=== PATIENT | male | born 1940 | race Caucasian/White ===

== ENCOUNTER 2020-05-10 07:19 | Outpatient (REF) | payer MEDICARE, SELFPAY ==
[2020-05-10 11:38] LABS: Alanine Aminotransferase 16 U/L (0-40); Albumin Level 4.1 g/dL (3.5-5.0); Alkaline Phosphatase 73 U/L (39-117); Anion Gap 15 (12-20); Aspartate Amino Transferase 21 U/L (5-37); Bilirubin Total 0.3 mg/dL (0.0-1.0); Blood Urea Nitrogen 25 mg/dL (9-16); Calcium 9.1 mg/dL (8.4-10.2); Carbon Dioxide 27 mmol/L (22-29); Chloride 104 mmol/L (96-108); Cholesterol 205 mg/dL; Estimated Glomerular Filt Rate > 60; Glucose Fasting 106 mg/dL (60-99); HDL Cholesterol 61 mg/dL; LDL Cholesterol Calculated 127 mg/dl; Potassium 4.8 mmol/l (3.3-5.1); Sodium 141 mmol/L (135-145); Total Protein 7.4 g/dL (6.5-8.0); Triglycerides 88 mg/dL
== END 2020-05-10 07:20 | disposition home or self-care (01) ==
LOC: HO.WFDLDS 07:19
PROVIDERS: PCP Family Medicine; Visit Provider Family Medicine
DX: R73.01 Impaired fasting glucose (principal); E78.00 Pure hypercholesterolemia, unspecified
CPT/HCPCS: 80053; 80061

== ENCOUNTER 2020-05-16 10:49 | Outpatient (REF) | payer MEDICARE, SELFPAY ==
[2020-05-16 11:44] LABS: Creatinine Urine 84.87 mg/dL; Microalbumin Urine < 5.0 mg/L
== END 2020-05-16 10:50 | disposition home or self-care (01) ==
LOC: HO.LNP 10:49
PROVIDERS: Visit Provider Family Medicine
DX: E11.9 Type 2 diabetes mellitus without complications (principal)
CPT/HCPCS: 82043

== ENCOUNTER → 2020-11-30 14:44 | Outpatient (REF) | payer MEDICARE, SELFPAY ==
--- NOTE | 2020-11-30 14:47 | CA_ITS ---
Transthoracic Echocardiogram Patient (Last, First, Middle): Blaine Mane E Gender: Male Date of : 1940 Age: 80 Procedure Date: 11/30/2020 Procedure Type: Transthoracic Echocardiogram Location: OP Height: 187.96 cm Weight: 121.56 kg BSA: 2.46 m2 Heart Rate: bpm BP: 120 / 65 mmHg Membership Director: JAYLEEN Gomez MD: Brian Young MD Classification Counselor: Praveen Burch MD Symptoms: I35.0 - Nonrheumatic aortic (valve) stenosis Study Quality: Fair/Contrast ECG Rhythm: Sinus Conclusions: - 1. Normal LV systolic function with impaired relaxation filling pattern 2. Moderate to severe aortic stenosis with mean gradient of 25 mm Hg suggestive of paradoxical low-flow aortic stenosis 3. Mildly to moderately elevated right ventricular systolic pressure 4. No pericardial effusion Findings Procedure Information Contrast agent, definity, is being given per protocol without apparent complications. Left Ventricle Normal left ventricular size, thickness, and systolic function. The visually estimated ejection fraction is between 60-65%. Spectral Doppler is indicative of an impaired relaxation filling pattern. E/E prime ratio is between 8 and 15 consistent with indeterminate filling pressures. Right Ventricle Normal right ventricular cavity size and systolic function. Atria The left atrium is normal in size. Interatrial shunt cannot be excluded. The right atrium was not well visualized. Aortic Valve There is moderate calcification of the aortic valve. There is moderate to severe aortic valve stenosis. The peak aortic gradient is 47 mmHg.The aortic valve area is 1.02 cm2. There is no aortic valve regurgitation. Mitral Valve There is mild anterior and posterior mitral leaflet thickening. There is mild mitral annular calcification. There is trace mitral valve regurgitation. There is no mitral valve stenosis. Pulmonic Valve The pulmonic valve was not well visualized. Tricuspid Valve Normal tricuspid valve structure. There is mild tricuspid valve regurgitation. Normal right atrial pressure. Mild to moderate pulmonary hypertension is present. Great Vessels All visible segments of the aorta are normal in size. The pulmonary artery was not well visualized. Venous The inferior vena cava is normal in size and collapses greater than 50% with inspiration. Pericardium/Pleural There is no evidence of pericardial effusion. Prior Study Comparison Changes noted compared to prior study dated: 06/06/2015. Aortic stenosis has progressed Measurements 2D Linear Measurements IVSd: 1.18 0.6-0.9/0.6-1.0 cm LVIDd: 4.08 3.9-5.3/4.2-5.9 cm LVIDd Index: 1.66 2.4-3.2/2.2-3.1 cm/m2 LVIDs: 2.33 2.0-3.6 cm LVPWd: 1.10 0.7-1.1 cm Ao Root: 3.70 2.1-3.5 cm LA Diam: 2.80 2.7-3.8/3.0-4.0 cm LAIDs Index: 1.14 1.5-2.3 cm/m2 LV Mass: 196.92 67-162/88-224 g LV Mass Index: 80.05 43-95/49-115 g/m2 LVOT Diam: 2.30 3.0+(-)1.3 cm 2D Systolic Function EF 4C: 67.50 >55% EF 2C: 64.40 >55% EF BiP: 66.10 >55% Mitral Valve MV Pk E: 0.72 MV PK A: 1.02 MV Decel Time: 222.00 E/A: 0.70 E'Lateral: 7.83 E'Medial: 5.87 E/E' Med: 12.20 E/E' Lat: 9.10 PHT: 65.00 MVA PHT: 3.38 Decel [place]: 3.22 Aortic Valve AoV Pk Robinson: 3.41 AoV Mn Robinson: 2.35 AoV VTI: 0.67 AoV Pk Grad: 47.00 Aov Mn Grad: 25.00 CHELSEA Cont.VTI: 1.02 LVOT LVOT Pk Robinson: 0.76 LVOT Mn Robinson: 0.52 LVOT VTI: 0.17 LVOT Pk Grad: 2.00 LVOT Mn Grad: 1.00 LVOT Diam: 2.30 LVOT Area: 4.15 Diastolic Function MV Pk E: 0.72 MV Pk A: 1.02 E/A: 0.70 E'Medial: 5.87 E/E' Med: 12.20 E' Laterial: 7.83 E/E' Lat: 9.10 Tricuspid Valve TR Pk Robinson: 3.23 TR Pk Grad: 42.00 RA Press: 3.00 RVSP: 45.00 Great Vessels Aorta Ao Root-2D: 3.70 2.0-3.7 cm Ao Asc: 3.80 2.1-3.4 cm Ao Arch: 3.10 Updated in Other Vendor System with Status of Final Praveen Burch MD electronically signed on 12/01/2020 2:14:57 PM with status of Final
== END ==
LOC: HO.CARD 14:44
PROVIDERS: Visit Provider Family Medicine
DX: I35.0 Nonrheumatic aortic (valve) stenosis (principal)
CPT/HCPCS: 93306; Q9957

== ENCOUNTER → 2021-02-20 12:54 | Outpatient (BNVA) | payer MEDICARE, SELFPAY | PROVIDERS: PCP Family Medicine; Referring Provider Family Medicine; Visit Provider Internal Medicine | DX: I35.0 Nonrheumatic aortic (valve) stenosis (principal) | CPT/HCPCS: 93005; 99202 ==

== ENCOUNTER 2021-05-07 09:04 | Outpatient (REF) | payer MEDICARE, SELFPAY ==
[2021-05-07 12:05] LABS: Estimated Average Glucose 123 mg/dL; Hemoglobin A1c % 5.9 %
[2021-05-07 12:22] LABS: Alanine Aminotransferase 15 U/L (0-40); Albumin Level 4.1 g/dL (3.5-5.0); Alkaline Phosphatase 76 U/L (39-117); Anion Gap 12 (12-20); Aspartate Amino Transferase 20 U/L (5-37); Bilirubin Total 0.4 mg/dL (0.0-1.0); Blood Urea Nitrogen 23 mg/dL (9-16); Calcium 9.5 mg/dL (8.4-10.2); Carbon Dioxide 27 mmol/L (22-29); Chloride 106 mmol/L (96-108); Cholesterol 181 mg/dL; Estimated Glomerular Filt Rate > 60; Glucose Random 87 mg/dL (60-115); HDL Cholesterol 48 mg/dL; LDL Cholesterol Calculated 109 mg/dl; Potassium 4.3 mmol/L (3.3-5.1); Sodium 141 mmol/L (135-145); Total Protein 7.2 g/dL (6.5-8.0); Triglycerides 120 mg/dL
[2021-05-07 12:28] LABS: Thyroid Stimulating Hormone 1.91 uIU/mL (0.32-4.0)
== END 2021-05-07 09:05 | disposition home or self-care (01) ==
LOC: HO.WFDLDS 09:04
PROVIDERS: Visit Provider Family Medicine
DX: Z00.00 Encounter for general adult medical examination without abnormal findings (principal); E03.9 Hypothyroidism, unspecified; I35.0 Nonrheumatic aortic (valve) stenosis; R73.01 Impaired fasting glucose
CPT/HCPCS: 36415; 80053; 80061; 83036; 84443

== ENCOUNTER → 2021-08-31 07:51 | Outpatient (REF) | payer MEDICARE, SELFPAY ==
--- NOTE | 2021-08-31 08:03 | CA_ITS ---
Transthoracic Echocardiogram Patient (Last, First, Middle): Blaine Mane E Gender: Male Date of : 1940 Age: 81 Procedure Date: 08/31/2021 Procedure Type: Transthoracic Echocardiogram Location: OP Height: 190.5 cm Weight: 116.58 kg BSA: 2.44 m2 Heart Rate: bpm BP: 122 / 70 mmHg Gathering Machine Setter: MARIE Referring MD: Brendon Foss MD Symptoms: I35.0 - Nonrheumatic aortic (valve) stenosis Study Quality: Fair ECG Rhythm: Sinus Conclusions: - The left ventricular systolic function is normal. The calculated ejection fraction is 65% by biplane method. - There is moderate to severe aortic valve stenosis. Low flow-low gradient type. Findings Left Ventricle Normal left ventricular cavity size. There is mildly increased left ventricular wall thickness. The left ventricular systolic function is normal. The calculated ejection fraction is 65% by biplane method. Diastolic function is normal for age. Wall motion assessment suboptimal but no gross abnormality. Right Ventricle Normal right ventricular cavity size and systolic function. Atria Both atria are normal in size. Aortic Valve There is moderate calcification of the aortic valve. There is moderate to severe aortic valve stenosis. The peak aortic velocity is 3.42 m/s with a calculated peak gradient of 47 mmHg. The mean gradient is 29 mmHg. The aortic valve area is 1.05 cm2. There is trace (trivial) aortic valve regurgitation. Dimensionless index 0.23. Stroke volume index 30cc. Mitral Valve The mitral valve appears normal. There is mild mitral annular calcification. There is no mitral valve regurgitation. There is no mitral valve stenosis. Pulmonic Valve The pulmonic valve was not well visualized. Tricuspid Valve There is mild tricuspid valve regurgitation. The pulmonary artery systolic pressure is normal. Great Vessels The asc aorta is normal in size. Moderate plaque is seen in the sinuses of Valsalva. Venous The inferior vena cava was not well visualized. The inferior vena cava is normal in size. Pericardium/Pleural There is no evidence of pericardial effusion. Prior Study Comparison No significant change compared to prior study dated: 11/30/2020. Measurements 2D Linear Measurements IVSd: 1.18 0.6-0.9/0.6-1.0 cm LVIDd: 3.99 3.9-5.3/4.2-5.9 cm LVIDd Index: 1.64 2.4-3.2/2.2-3.1 cm/m2 LVIDs: 2.33 2.0-3.6 cm LVPWd: 1.10 0.7-1.1 cm LA Diam: 3.60 2.7-3.8/3.0-4.0 cm LAIDs Index: 1.48 1.5-2.3 cm/m2 LV Mass: 190.29 67-162/88-224 g LV Mass Index: 77.99 43-95/49-115 g/m2 LVOT Diam: 2.30 3.0+(-)1.3 cm 2D Systolic Function EF 4C: 59.60 >55% EF 2C: 66.20 >55% EF BiP: 65.00 >55% Mitral Valve MV Pk E: 0.72 MV PK A: 0.93 MV Decel Time: 296.00 E/A: 0.80 E'Lateral: 6.09 E'Medial: 5.55 E/E' Med: 13.00 E/E' Lat: 11.90 PHT: 87.00 MVA PHT: 2.53 Decel [place]: 2.44 Aortic Valve AoV Pk Robinson: 3.42 AoV Mn Robinson: 2.54 AoV VTI: 0.70 AoV Pk Grad: 47.00 Aov Mn Grad: 29.00 CHELSEA Cont.VTI: 1.05 LVOT LVOT Pk Robinson: 0.78 LVOT Mn Robinson: 0.51 LVOT VTI: 0.18 LVOT Pk Grad: 2.00 LVOT Mn Grad: 1.00 LVOT Diam: 2.30 LVOT Area: 4.15 Diastolic Function MV Pk E: 0.72 MV Pk A: 0.93 E/A: 0.80 E'Medial: 5.55 E/E' Med: 13.00 E' Laterial: 6.09 E/E' Lat: 11.90 Right Ventricle TAPSE (mm): 2.09 TVS' Robinson: 12.30 Tricuspid Valve TR Pk Robinson: 2.50 TR Pk Grad: 25.00 RA Press: 3.00 RVSP: 28.00 Great Vessels Aorta Sinus of Valsalva: 3.77 2.0-3.[address] [place]: 2.10 1.7-3.4 cm Ao Asc: 3.80 2.1-3.4 cm Updated in Other Vendor System with Status of Final Brendon Foss MD electronically signed on 09/01/2021 2:18:11 PM with status of Final
== END ==
LOC: HO.CARD 07:51
PROVIDERS: PCP Family Medicine; Visit Provider Internal Medicine
DX: I35.0 Nonrheumatic aortic (valve) stenosis (principal)
CPT/HCPCS: 93306

== ENCOUNTER → 2021-09-11 08:35 | Outpatient (BNVA) | payer MEDICARE, SELFPAY | PROVIDERS: PCP Family Medicine; Referring Provider Family Medicine; Visit Provider Internal Medicine | DX: I35.0 Nonrheumatic aortic (valve) stenosis (principal) | CPT/HCPCS: 99212 ==

== ENCOUNTER 2021-11-08 10:27 | Outpatient (REF) | payer MEDICARE, SELFPAY ==
[2021-11-08 13:32] LABS: MANUAL DIFF FLAG NO
[2021-11-08 13:37] LABS: Appearance Urine CLEAR; Color Urine YELLOW; Glucose Urine UA NEG (NEG); Leukocyte Esterase Urine NEG (NEG); Nitrite Urine NEG (NEG); PH 5.5 (5.0-8.0); Specific Gravity - Urine >= 1.030 (1.005-1.025); Urine Blood NEG (NEG); Urine Ketones NEG (NEG); Urine Protein NEG (NEG-TRACE)
[2021-11-08 13:43] LABS: Basophils Absolute Auto 0.1 X10*3/uL (0.0-0.2); Basophils Percent Auto 1.3 % (0-2); Eosinophils Absolute Auto 0.2 X10*3/uL (0.0-0.4); Eosinophils Percent Auto 2.7 % (0-4); Hematocrit 40.4 % (42.0-52.0); Hemoglobin 12.8 g/dl (14.0-18.0); Imm Gran Abs Auto 0.04 X10*3/uL (0.00-0.03); Imm Gran Pct Auto 0.5 % (0.0-0.4); Lymphocytes Absolute Auto 2.3 X10*3/uL (1.2-4.9); Lymphocytes Percent Auto 26.7 % (20-40); Mean Corpuscular HGB Conc 31.7 g/dl (31.0-36.0); Mean Corpuscular Hemoglobin 30.7 pg (27.0-33.0); Mean Corpuscular Volume 96.9 fL (80.0-98.0); Monocytes Absolute Auto 0.8 X10*3/uL (0.1-1.2); Monocytes Percent Auto 9.2 % (2-11); Neutrophils Absolute Auto 5.2 x10*3/uL (2.0-8.3); Neutrophils Percent Auto 59.6 % (45-73); Platelet Count 239 X10*3/uL (160-400); Red Blood Count 4.17 X10*6/uL (4.60-5.80); Red Cell Distribution Width 12.4 % (11.0-16.0); White Blood Count 8.6 X10*3/uL (4.8-10.8)
[2021-11-08 13:48] LABS: Alanine Aminotransferase 18 U/L (0-40); Alkaline Phosphatase 80 U/L (39-117); Anion Gap 12 (12-20); Aspartate Amino Transferase 22 U/L (5-37); Bilirubin Total 0.4 mg/dL (0.0-1.0); Blood Urea Nitrogen 18 mg/dL (9-16); Calcium 9.1 mg/dL (8.4-10.2); Carbon Dioxide 29 mmol/L (22-29); Chloride 105 mmol/L (96-108); Cholesterol 197 mg/dL; Estimated Glomerular Filt Rate > 60; Glucose Fasting 100 mg/dL (60-99); HDL Cholesterol 54 mg/dL; LDL Cholesterol Calculated 123 mg/dl; Potassium 4.5 mmol/L (3.3-5.1); Sodium 141 mmol/L (135-145); Total Protein 7.1 g/dL (6.5-8.0); Triglycerides 104 mg/dL
[2021-11-08 14:09] LABS: TSH reflex Free T4 1.86 uIU/mL (0.32-4.0)
[2021-11-08 14:15] LABS: Creatinine Urine 133.36 mg/dL; Microalbum/Creatinine Ratio Ur 5.9 ug/mg cr
== END 2021-11-08 10:28 | disposition home or self-care (01) ==
LOC: HO.WFDLDS 10:27
PROVIDERS: Visit Provider Family Medicine
DX: Z00.00 Encounter for general adult medical examination without abnormal findings (principal); I10 Essential (primary) hypertension
CPT/HCPCS: 36415; 80053; 80061; 81003; 82043; 84443; 85025

== ENCOUNTER 2021-12-10 07:36 | Outpatient (REF) | payer MEDICARE, SELFPAY ==
[2021-12-10 11:18] LABS: MANUAL DIFF FLAG NO
[2021-12-10 11:23] LABS: Basophils Absolute Auto 0.1 X10*3/uL (0.0-0.2); Basophils Percent Auto 1.5 % (0-2); Eosinophils Absolute Auto 0.2 X10*3/uL (0.0-0.4); Hematocrit 40.4 % (42.0-52.0); Hemoglobin 12.9 g/dl (14.0-18.0); Imm Gran Abs Auto 0.03 X10*3/uL (0.00-0.03); Imm Gran Pct Auto 0.4 % (0.0-0.4); Immature Retic Fraction 8.6 % (2.3-13.4); Lymphocytes Percent Auto 25.2 % (20-40); Mean Corpuscular HGB Conc 31.9 g/dl (31.0-36.0); Mean Corpuscular Hemoglobin 31.3 pg (27.0-33.0); Mean Corpuscular Volume 98.1 fL (80.0-98.0); Monocytes Absolute Auto 0.6 X10*3/uL (0.1-1.2); Monocytes Percent Auto 6.9 % (2-11); Neutrophils Absolute Auto 5.1 x10*3/uL (2.0-8.3); Platelet Count 236 X10*3/uL (160-400); Red Blood Count 4.12 X10*6/uL (4.60-5.80); Red Cell Distribution Width 12.4 % (11.0-16.0); Retic HGB Equivalent 35.9 pg (30.0-35.0); Reticulocyte Percent 1.4 % (0.5-1.8); Reticulocytes Absolute 0.058 X10*6/uL (0.026-0.095); White Blood Count 8.1 X10*3/uL (4.8-10.8)
[2021-12-10 11:38] LABS: Estimated Average Glucose 120 mg/dL; Hemoglobin A1c % 5.8 %
[2021-12-10 11:53] LABS: Alanine Aminotransferase 17 U/L (0-40); Albumin Level 4.1 g/dL (3.5-5.0); Alkaline Phosphatase 78 U/L (39-117); Anion Gap 11 (12-20); Aspartate Amino Transferase 21 U/L (5-37); Bilirubin Total 0.2 mg/dL (0.0-1.0); Blood Urea Nitrogen 20 mg/dL (9-16); Calcium 9.1 mg/dL (8.4-10.2); Carbon Dioxide 28 mmol/L (22-29); Chloride 106 mmol/L (96-108); Cholesterol 205 mg/dL; Estimated Glomerular Filt Rate > 60; Glucose Fasting 123 mg/dL (60-99); HDL Cholesterol 58 mg/dL; Iron 63 mcg/dL (45-160); LDL Cholesterol Calculated 130 mg/dl; Percent Iron Saturation 20 % (15-50); Potassium 4.3 mmol/L (3.3-5.1); Sodium 141 mmol/L (135-145); Total Iron Binding Capacity 312 mcg/dL (228-428); Total Protein 7.1 g/dL (6.5-8.0); Triglycerides 89 mg/dL; Unsaturated Iron Binding 249 ug/dL
[2021-12-10 12:02] LABS: Ferritin 398 ng/mL (20-250); Prostate Specific Antigen Scr < 0.05 ng/mL (<0.05-4.0)
[2021-12-10 12:15] LABS: Folate 18.4 ng/mL (> or = 4.0); Vitamin B12 714 pg/mL (200-900)
== END 2021-12-10 07:37 | disposition home or self-care (01) ==
LOC: HO.WFDLDS 07:36
PROVIDERS: Visit Provider Family Medicine
DX: Z00.00 Encounter for general adult medical examination without abnormal findings (principal); I10 Essential (primary) hypertension; R73.01 Impaired fasting glucose; R73.03 Prediabetes; D64.9 Anemia, unspecified; E53.8 Deficiency of other specified B group vitamins; E78.5 Hyperlipidemia, unspecified; Z12.5 Encounter for screening for malignant neoplasm of prostate
CPT/HCPCS: 36415; 80053; 80061; 82607; 82728; 82746; 83036; 83540; 84153; 84443; 85025; 85045

== ENCOUNTER → 2022-04-02 10:09 | Outpatient (REF) | payer MEDICARE, SELFPAY ==
--- NOTE | 2022-04-02 10:12 | CA_ITS ---
Transthoracic Echocardiogram Patient (Last, First, Middle): Blaine Mane E Gender: Male Date of : 1940 Age: 81 Procedure Date: 04/02/2022 Procedure Type: Transthoracic Echocardiogram Location: OP Height: 187.96 cm Weight: 114.31 kg BSA: 2.40 m2 Heart Rate: 75 bpm BP: 130 / 80 mmHg Master Baker: CLEMENTINE Referring MD: Brendon Foss MD Symptoms: I35.0 - Nonrheumatic aortic (valve) stenosis Study Quality: Fair ECG Rhythm: Sinus Conclusions: - The left ventricular systolic function is normal. The visually estimated ejection fraction is between 55-60%. - There is severe aortic valve stenosis. Low flow, low gradient type. Findings Left Ventricle Normal left ventricular cavity size. There is mildly increased left ventricular wall thickness. The left ventricular systolic function is normal. The visually estimated ejection fraction is between 55-60%. There is no evidence of regional wall motion abnormalities. Diastolic function is normal for age. Moderate to severe focal basal septal hypertrophy. Right Ventricle Normal right ventricular cavity size and systolic function. Atria Both atria are normal in size. Aortic Valve There is severe calcification of the aortic valve. There is severe aortic valve stenosis. The peak aortic gradient is 37 mmHg.The mean gradient is 23 mmHg. The aortic valve area is 0.89 cm2. There is trace (trivial) aortic valve regurgitation. Stroke volume index 25cc/m2. Mitral Valve The mitral valve appears normal. There is trace mitral valve regurgitation. There is no mitral valve stenosis. Pulmonic Valve The pulmonic valve is likely normal. Tricuspid Valve Normal tricuspid valve structure. There is mild tricuspid valve regurgitation. There is no evidence of pulmonary hypertension. Great Vessels The asc aorta is normal in size. Venous The inferior vena cava was not well visualized. Pericardium/Pleural Prominent epicardial adipose tissue noted. There is a trivial pericardial effusion. Prior Study Comparison Changes noted compared to prior study dated: 08/31/2021. Valve area slightly smaller. Gradients lower than before, possible underestimated. Measurements 2D Linear Measurements IVSd: 1.51 0.6-0.9/0.6-1.0 cm LVIDd: 4.22 3.9-5.3/4.2-5.9 cm LVIDd Index: 1.76 2.4-3.2/2.2-3.1 cm/m2 LVIDs: 1.95 2.0-3.6 cm LVPWd: 1.04 0.7-1.1 cm LA Diam: 3.70 2.7-3.8/3.0-4.0 cm LAIDs Index: 1.54 1.5-2.3 cm/m2 LV Mass: 244.54 67-162/88-224 g LV Mass Index: 101.89 43-95/49-115 g/m2 LVOT Diam: 2.20 3.0+(-)1.3 cm 2D Systolic Function EF 4C: 50.60 >55% EF 2C: 53.50 >55% EF BiP: 48.20 >55% Mitral Valve MV Pk E: 0.74 MV PK A: 1.12 MV Decel Time: 247.00 E/A: 0.70 E'Lateral: 6.42 E'Medial: 5.77 E/E' Med: 12.90 E/E' Lat: 11.60 PHT: 72.00 MVA PHT: 3.06 Decel [place]: 3.00 Aortic Valve AoV Pk Robinson: 3.04 AoV Mn Robinson: 2.21 AoV VTI: 0.68 AoV Pk Grad: 37.00 Aov Mn Grad: 23.00 CHELSEA Cont.VTI: 0.89 LVOT LVOT Pk Robinson: 0.71 LVOT Mn Robinson: 0.51 LVOT VTI: 0.16 LVOT Pk Grad: 2.00 LVOT Mn Grad: 1.00 LVOT Diam: 2.20 LVOT Area: 3.80 Diastolic Function MV Pk E: 0.74 MV Pk A: 1.12 E/A: 0.70 E'Medial: 5.77 E/E' Med: 12.90 E' Laterial: 6.42 E/E' Lat: 11.60 Right Ventricle TAPSE (mm): 22.90 TVS' Robinson: 12.50 Tricuspid Valve TR Pk Robinson: 2.44 TR Pk Grad: 24.00 Great Vessels Aorta Sinus of Valsalva: 3.90 2.0-3.5 cm Ao Asc: 3.70 2.1-3.4 cm Pulmonary Valve PV Pk Robinson: 1.60 Peak PV Grad: 10.00 Updated in Other Vendor System with Status of Final Brendon Foss MD electronically signed on 04/03/2022 12:00:37 PM with status of Final
== END ==
LOC: HO.CARD 10:09
PROVIDERS: Visit Provider Internal Medicine
DX: I35.0 Nonrheumatic aortic (valve) stenosis (principal)
CPT/HCPCS: 93306

== ENCOUNTER → 2022-09-11 08:26 | Outpatient (BNVA) | payer MEDICARE, SELFPAY | PROVIDERS: PCP Family Medicine; Visit Provider Internal Medicine | DX: I35.0 Nonrheumatic aortic (valve) stenosis (principal) | CPT/HCPCS: 99212 ==

== ENCOUNTER → 2022-10-21 08:06 | Outpatient (REF) | payer MEDICARE, SELFPAY ==
--- NOTE | 2022-10-21 08:09 | CA_ITS ---
Acquisition Time: 2022-10-21 08:19:00 Total Exercise Time: 00:03:44 Test Indications: AORTIC STENOSIS Medications: MULTIVIT SILDENAFIL Protocol: DANIS Max HR: 148 BPM 107% of Pred: 138 BPM Max BP: 168/064 mmHG Max Work Load: 5.0 METS Exercise stress test with exercise 3 min 44 sec of Danis protocol ( speed in stage 2 reduced to 2.0 MPH) achieving 97% MPHR, with request to stop due to leg fatigue, he denies having sob, chest discomfort, lightheadness, with isolated PVC, with normotensive and brisk chronotopic response to exercise, without EKG changes meeting criteria for ischemia. Test reviewed with Dr Burch. Referred By: Brendon Foss Overread By: CLEMENCIA HERRMANN
== END ==
LOC: HO.CARD 08:06
PROVIDERS: PCP Family Medicine; Visit Provider Internal Medicine
DX: I35.0 Nonrheumatic aortic (valve) stenosis (principal)
CPT/HCPCS: 93017

== ENCOUNTER 2022-12-18 08:46 | Outpatient (AMB) | payer MEDICARE, SELFPAY ==
[2022-12-18 08:48] VITALS: BP 120/78; PULSE 79; O2SAT 97; BMI 35.7
--- NOTE | 2022-12-18 08:48 | A.OFFPC_ITS ---
Vital Signs 12/18/22 08:48 Height 6 ft 2 in Weight 278 lb BMI 35.7 BP 120/78 Blood Pressure Location Rt brachial Position Sitting Pulse 79 Pulse Source Pulse Oximeter Pulse Oximetry (%) 97 Oxygen Delivery Method Room Air Intake Visit Reasons: Extended exam Intake Note: Patient is here for an extended exam. Allergies No Known Allergies Allergy (Verified 12/18/22 08:52) Medication List - Last Reconciled 12/18/22 by Brain Young MD multivitamin 1 tab PO DAILY sildenafil (Viagra) 25 mg PO DAILY PRN Tobacco use date assessed: 12/18/22 Fall risk assessment: No Falls in past year Last assessed Fall Risk: 12/18/22 Dental Screening Dental Screen Date: 12/18/22 Did you have a dental visit in the last 12 months?: Yes Did you have a dental problem in the last 6 months where you did not have access to dental care?: No Was dental information given to patient?: No HPI Extended exam HPI Details 82 y/o male presents for an extended exam with f/u labs and health maintenance. No recent labs to review. Had seen Pet Groomer for his aortic stenosis. He states he had a stress test done a couple weeks ago. He sees a dentist every 6 months. [facility] Medical History Diabetes Surgical History History of cholecystectomy Family History Mother No problems noted. Father No problems noted. 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 1. Little interest or pleasure in doing things: not at all 2. Feeling down, depressed, or hopeless: not at all 3. Trouble falling or staying asleep, or sleeping too much: not at all 4. Feeling tired or having little energy: not at all 5. Poor appetite or overeating: not at all 6. Feeling bad about yourself - or that you are a failure or have let yourself or your family down: not at all 7. Trouble concentrating on things, such as reading the newspaper or watching television: not at all 8. Moving or speaking so slowly that other people could have noticed. Or the opposite - being so fidgety or restless that you have been moving around a lot more than usual: not at all 9. Thoughts that you would be better off or of hurting yourself in some way: not at all Total score: 0 Source: Developed by Drs. Gabriel Rose, Va Nascimento, Mike Rowland and colleagues, with an educational piter from [employer]. Thrive Questionnaire Date Thrive assessed: 06/11/22 I am a: Patient What is your living situation today?: I have a steady place to live Within the past 12 months, did the food you bought not last and you didn't have the money to get more?: Never true Within the past 12 months, did you worry whether your food would run out before you got money to buy more?: Never true Do you have trouble paying for medicines?: No Do you have trouble getting transportation to medical appointments?: No Do you have trouble paying your heating and electricity bill?: No Do you have trouble taking care of your child, family member or friend?: No Do you have trouble with day-to-day activities such as bathing, preparing meals, shopping, managing finances, etc.?: No Are you currently unemployed and looking for a job?: No Are you interested in more education?: No AUDIT C Alcohol Use Questionnaire (AUDIT-C) 1. How often do you have a drink containing alcohol?: Never 3. How often do you have six or more drinks on one occasion?: Never Total Score: 0 RENEA-7 AMB Questionnaire RENEA-7 Date RENEA - 7 assessed: 06/11/22 Feeling nervous, anxious, or on edge: 0 = Not at all Not being able to stop or control worryin = Not at all Worrying too much about different things: 0 = Not at all Trouble relaxin = Not at all Being so restless that it is hard to sit still: 0 = Not at all Becoming easily annoyed or irritable: 0 = Not at all Feeling afraid as if something awful might happen: 0 = Not at all Total RENEA-7 score (0-4 normal; 5-9 mild; 10-14 moderate; 15-21 severe): 0 Source: Developed by Drs. Gabriel Rose, Va Nascimento, Mike Rowland and colleagues, with an educational piter from [employer]. Physical exam (Primary Care) Vital Signs: Last Vital Signs Pulse 79 12/18/22 08:48 BP 120/78 12/18/22 08:48 Pulse Ox 97 12/18/22 08:48 Oxygen Delivery Method Room Air 12/18/22 08:48 BMI result Body Mass Index 35.7 Tobacco/Smoking Status: Tobacco use Status Tobacco use date assessed 12/18/22 12/18/22 09:00 Patient Tobacco Use Status Never used Tobacco 12/18/22 09:00 e-Cigarette/Vaping Use Never Used 12/18/22 09:00 PHQ-9: PHQ-9 Score PHQ-9: Total score 0 12/18/22 09:38 Thrive Assessment: Date of Thrive Assessment Date Thrive assessed 06/11/22 12/18/22 09:00 Results AMB Hemoglobin A1c AMB Hemoglobin A1c 6.1 % Last Edit by Louisa Smith CMA on 12/18/22 09:11 Results Reviewed Results Reviewed: Laboratory Last Values Hgb A1c (Clinic) 6.1 % (4.0-6.0) H 12/18/22 09:11 Assessment and Plan Assessment & Plan (1) Essential hypertension: Code(s): I10 - Essential (primary) hypertension Plan: Blood pressure is well controlled. Goal is less than 130/80 Continue diet control (2) Non-rheumatic aortic stenosis: Code(s): I35.0 - Nonrheumatic aortic (valve) stenosis Plan: Asymptomatic. Recent echo showed severe stenosis. Was referred to Cardiology. A recent stress test showed no ischemia We will continue to monitor (3) Hyperlipidemia: Code(s): E78.5 - Hyperlipidemia, unspecified Plan: Checking labs (4) Screening for prostate cancer: Code(s): Z12.5 - Encounter for screening for malignant neoplasm of prostate Plan: Check PSA (5) Screening for colon cancer: Code(s): Z12.11 - Encounter for screening for malignant neoplasm of colon Plan: Patient declines any further colon cancer screening (6) Pre-diabetes: Code(s): R73.03 - Prediabetes Plan: A1c 6.1% and steady. Encouraged healthy diet with exercise and weight control (7) Adult general medical exam: Code(s): Z00.00 - Encounter for general adult medical examination without abnormal findings Plan: 82-year-old male presents for an extended exam Encouraged healthy diet with active lifestyle and plenty of exercise Orders: Orders Comprehensive Met. Panel Today Z00.00 - Encounter for general adult medical examination without abnormal findings LDL Cholesterol Direct Today E78.5 - Hyperlipidemia, unspecified Lipid Panel Today Z00.00 - Encounter for general adult medical examination without abnormal findings Prostate Specific Antigen Scr Today Z00.00 - Encounter for general adult medical examination without abnormal findings, Z12.5 - Encounter for screening for malignant neoplasm of prostate TSH reflex Free T4 Today Z00.00 - Encounter for general adult medical examination without abnormal findings Microalbumin, Random (w Creat) Today I10 - Essential (primary) hypertension, Z00.00 - Encounter for general adult medical examination without abnormal findings UA and rflx microscopic Today Z00.00 - Encounter for general adult medical examination without abnormal findings Complete Blood Count Auto Diff Today Z00.00 - Encounter for general adult medical examination without abnormal findings AMB Hemoglobin A1c Today Z13.9 - Encounter for screening, unspecified Coding Level of Care Code Est Pt Level 4 (47201) Diagnoses Essential hypertension I10 Non-rheumatic aortic stenosis I35.0 Hyperlipidemia E78.5 Screening for prostate cancer Z12.5 Screening for colon cancer Z12.11 Pre-diabetes R73.03 Adult general medical exam Z00.00
== END 2022-12-18 09:52 | disposition home or self-care (01) ==
PROVIDERS: Visit Provider Family Medicine
DX: I10 Essential (primary) hypertension (principal); I35.0 Nonrheumatic aortic (valve) stenosis; E78.5 Hyperlipidemia, unspecified; Z12.5 Encounter for screening for malignant neoplasm of prostate; Z12.11 Encounter for screening for malignant neoplasm of colon; R73.03 Prediabetes; Z00.00 Encounter for general adult medical examination without abnormal findings; Z13.9 Encounter for screening, unspecified
CPT/HCPCS: 83036; 99214

== ENCOUNTER 2022-12-18 09:53 | Outpatient (REF) | payer MEDICARE, SELFPAY ==
[2022-12-18 11:25] LABS: MANUAL DIFF FLAG NO
[2022-12-18 11:43] LABS: Basophils Absolute Auto 0.2 X10*3/uL (0.0-0.2); Basophils Percent Auto 1.8 % (0-2); Eosinophils Absolute Auto 0.2 X10*3/uL (0.0-0.4); Eosinophils Percent Auto 2.9 % (0-4); Hematocrit 43.8 % (42.0-52.0); Hemoglobin 13.8 g/dl (14.0-18.0); Imm Gran Abs Auto 0.03 X10*3/uL (0.00-0.03); Imm Gran Pct Auto 0.4 % (0.0-0.4); Lymphocytes Absolute Auto 2.6 X10*3/uL (1.2-4.9); Lymphocytes Percent Auto 31.2 % (20-40); Mean Corpuscular HGB Conc 31.5 g/dl (31.0-36.0); Mean Corpuscular Hemoglobin 30.5 pg (27.0-33.0); Mean Corpuscular Volume 96.9 fL (80.0-98.0); Mean Platelet Volume 9.7 fL (9.4-12.4); Monocytes Absolute Auto 0.7 X10*3/uL (0.1-1.2); Monocytes Percent Auto 8.3 % (2-11); Neutrophils Absolute Auto 4.6 x10*3/uL (2.0-8.3); Neutrophils Percent Auto 55.4 % (45-73); Platelet Count 259 X10*3/uL (160-400); Red Blood Count 4.52 X10*6/uL (4.60-5.80); Red Cell Distribution Width 12.7 % (11.0-16.0); White Blood Count 8.2 X10*3/uL (4.8-10.8)
[2022-12-18 14:31] LABS: Appearance Urine Cloudy; Color Urine Dark Yellow; Glucose Urine UA Negative (Negative); Leukocyte Esterase Urine Negative (Negative); Nitrite Urine Negative (Negative); Specific Gravity - Urine 1.025 (1.005-1.025); UMIC TRIGGER UA YES; Urine Blood Trace (Negative); Urine Ketones Negative (Negative); Urine Protein Negative (Neg-Trace)
[2022-12-18 14:40] LABS: Bacteria Urine None Seen (None Seen); Calcium Oxalate Crystals Urine Present; Hyaline Casts Urine 0-2 /LPF (0-2); WBC Urine 0-5 /HPF (0-5)
[2022-12-18 15:27] LABS: Creatinine Urine 125.77 mg/dL; Microalbum/Creatinine Ratio Ur 8.7 ug/mg cr
[2022-12-18 15:49] LABS: Prostate Specific Antigen Scr < 0.10 ng/mL (<0.05-4.0)
[2022-12-18 22:01] LABS: Alanine Aminotransferase 27 U/L (0-40); Albumin Level 4.1 g/dL (3.5-5.0); Alkaline Phosphatase 77 U/L (39-117); Anion Gap 15 (12-20); Aspartate Amino Transferase 29 U/L (5-37); Bilirubin Total 0.4 mg/dL (0.0-1.0); Blood Urea Nitrogen 21 mg/dL (9-16); Calcium 9.6 mg/dL (8.4-10.2); Carbon Dioxide 25 mmol/L (22-29); Chloride 103 mmol/L (96-108); Cholesterol 228 mg/dL; Estimated Glomerular Filt Rate > 60; Glucose Random 110 mg/dL (60-115); HDL Cholesterol 62 mg/dL; LDL Cholesterol Calculated 144 mg/dl; Potassium 4.2 mmol/L (3.3-5.1); Sodium 139 mmol/L (135-145); Total Protein 7.7 g/dL (6.5-8.0); Triglycerides 110 mg/dL
[2022-12-18 22:15] LABS: TSH reflex Free T4 1.93 uIU/mL (0.32-4.0)
[2022-12-20 09:59] LABS: LDL Cholesterol Direct 160 mg/dL (<100)
== END 2022-12-18 09:54 | disposition home or self-care (01) ==
LOC: HO.WFDLDS 09:53
PROVIDERS: Visit Provider Family Medicine
DX: Z00.00 Encounter for general adult medical examination without abnormal findings (principal); Z12.5 Encounter for screening for malignant neoplasm of prostate; E78.5 Hyperlipidemia, unspecified; I10 Essential (primary) hypertension
CPT/HCPCS: 36415; 80053; 80061; 81001; 82043; 83721; 84153; 84443; 85025

== ENCOUNTER → 2025-05-10 11:41 | Outpatient (BNV) | payer MEDICARE, SELFPAY | PROVIDERS: Emergency Provider Emergency Medicine Emergency Medical Services; Visit Provider Internal Medicine Cardiovascular Disease | DX: R94.31 Abnormal electrocardiogram [ECG] [EKG] (principal); Z04.3 Encounter for examination and observation following other accident | CPT/HCPCS: 93010 ==

== ENCOUNTER → 2025-05-10 11:41 | Outpatient (BNV) | payer MEDICARE, SELFPAY | PROVIDERS: Emergency Provider Emergency Medicine Emergency Medical Services; Visit Provider Radiology Diagnostic Radiology | DX: Z04.3 Encounter for examination and observation following other accident (principal); M50.30 Other cervical disc degeneration, unspecified cervical region; R29.6 Repeated falls; R91.8 Other nonspecific abnormal finding of lung field | CPT/HCPCS: 71045 ==

== ENCOUNTER → 2025-05-10 12:00 | Outpatient (BNV) | payer MEDICARE, SELFPAY | PROVIDERS: Emergency Provider Emergency Medicine Emergency Medical Services; PCP Family Medicine; Visit Provider Social Worker | DX: Z13.39 Encounter for screening examination for other mental health and behavioral disorders (principal) | CPT/HCPCS: 99284 ==

== ENCOUNTER → 2025-05-19 16:06 | Outpatient (BNV) | payer MEDICARE, SELFPAY | PROVIDERS: Admitting Provider Internal Medicine; Emergency Provider Emergency Medicine Emergency Medical Services; PCP Family Medicine; Visit Provider Internal Medicine | DX: R01.1 Cardiac murmur, unspecified (principal); I35.0 Nonrheumatic aortic (valve) stenosis | CPT/HCPCS: 99222 ==